=== PATIENT | male | born 1990 | race Caucasian/White ===

== ENCOUNTER 2021-09-02 18:57 | Emergency (ER) | payer SELFPAY ==
[~2021-09-02] VITALS: Ht 172.7 cm; Wt 121.8 kg
[2021-09-02 19:01] VITALS: BP 144/94
[2021-09-02] MEDS ORDERED: CYCL-1 PO (19:52)
[2021-09-02] MEDS ORDERED: IBUP-1986 PO (19:52)
[2021-09-02] MEDS ORDERED: orphenadrine citrate 60mg/2ml inj. IM ONE (19:55)
[2021-09-02] MEDS ORDERED: ketorolac trometh. 30mg/ml inj. IM ONE (19:55)
== END 2021-09-02 20:17 | disposition home or self-care (01) ==
LOC: ER 18:57
DX: S39.012A Strain of muscle, fascia and tendon of lower back, initial encounter (principal); M79.18 Myalgia, other site; E11.9 Type 2 diabetes mellitus without complications; Z79.899 Other long term (current) drug therapy; X58.XXXA Exposure to other specified factors, initial encounter; Y93.89 Activity, other specified; Y92.89 Other specified places as the place of occurrence of the external cause; Y99.8 Other external cause status
CPT/HCPCS: 96372; 99284; J1885; J2360